=== PATIENT | male | born 1995 | race Caucasian/White ===

== ENCOUNTER 2020-08-13 23:46 | Emergency (ER) | payer OTHER, SELFPAY ==
[2020-08-13 23:56] VITALS: BP 153/94; PULSE 77; RESP 14; TEMP 37.1; O2SAT 96; BMI 29.2
[2020-08-14 00:27] LABS: Strep Scrn Group A (Rapid) Negative (Negative)
--- NOTE | 2020-08-14 00:31 | HMH.EDGENADL ---
ED Disposition Clinical Impression: Pharyngitis Qualifiers: Pharyngitis/tonsillitis etiology: unspecified etiology Qualified Code(s): J02.9 - Acute pharyngitis, unspecified Disposition: Home, Self-Care Condition on Discharge: Good Instructions: Sore Throat Additional Instructions: fluids and use meds as directed Prescriptions: cephALEXin [Keflex 500mg Cap] 500 mg PO TID #30 cap Prescription Printed Referrals: Bucky Mac MD [Primary Care Provider] - - Critical Care Critical Care Time: No Attestation: On 08/13/20, the high probability of a clinically significant, sudden or life threatening deterioration of the following system(s) required my full and direct attention, intervention and personal management. The time I documented below is in addition to time spent performing reported procedures but includes the following listed in this critical care notation. Medical Decision Making - Medical Records Medical records reviewed: Yes: I reviewed the patient's medical records. - Ac Inquiry Pt receiving controlled substance: No Vital Signs: 08/13/20 23:56 Temperature 98.7 F Temperature Source Oral Pulse Rate [Right] 77 Respiratory Rate 14 Blood Pressure [Right Arm] 153/94 H Blood Pressure Mean [Right Arm] 113 Blood Pressure Source [Right Arm] Automatic Cuff Blood Pressure Position [Right Arm] Sitting 02 Sat by Pulse Oximetry 96 Oxygen Delivery Method Room Air - Lab Data Lab results reviewed: Yes: I reviewed the patient's lab results. Lab Results 08/14/20 00:00: Group A Strep Rapid Negative Orders (Tests/Meds): ED MEDICATIONS Discontinued Medications Generic Name Dose Route Start Last Admin Trade Name Freq PRN Reason Stop Dose Admin Dexamethasone Sodium Phosphate 10 mg 08/14/20 00:14 08/14/20 00:17 Dexamethasone 4mg/Ml 1ml Vial IM 08/14/20 00:15 10 mg ONCE ONE Administration ORDERS Category Date Time Status Strep Screen Confirmation Stat Micro 08/14/20 00:00 Received General Adult HPI - General Chief complaint: PAIN Stated complaint: Sore throat Time Seen by Provider: 08/14/20 00:00 Mode of Arrival: Ambulatory Source of Information: Patient, Spouse, Medical Record Limitations: No Limitations Description of Symptoms (Recalled from ER Triage Doc. by RN): Pt states he has a sore throat starting yesterday, denies cough or fever. - History of Present Illness HPI narrative: sore throat w/o rash and no exposure to covid-19 Onset (ago): day(s) Severity: moderate Associated symptoms: denies other symptoms Treatments prior to arrival: none - Related Data Previous Rx's Medication Instructions Recorded cephALEXin [Keflex 500mg Cap] 500 mg PO TID #30 cap 08/14/20 Allergies Allergy/AdvReac Type Severity Reaction Status Date / Time No Known Allergies Allergy Unverified 09/13/17 14:54 [facility] History - Hepatitis A Screen Drug use history?: No High risk sexual behaviors?: No History of sexually transmitted infection?: No Currently employed?: No Childcare worker?: No Do you have indoor plumbing?: Yes Do you have electricity?: Yes Attestation statement:: This patient has been screened for Hepatitis A risk factors. I have reviewed the patient's past medical history: Yes Medical History: Denies:: Cancer, Diabetes Mellitus Type 1, Diabetes Mellitus Type 2, MRSA - Social History Alcohol Intake: never Occupational Status: employed ROS Obtained: Yes All systems reviewed & no additional complaints - Constitutional Constitutional: Denies fever(s) - ENT Ears, Nose, Mouth, and Throat: Reports as per HPI, Reports sore throat - Musculoskeletal Musculoskeletal: Denies joint pain - Integumentary/Breasts Skin/Breast: Denies rash - Neurologic Neurologic: Denies seizure-like activity Physical Exam - General General appearance: alert - Head Head exam: normocephalic - Eye Eye exam: Present: PERRL, EOMI - Expande
[2020-08-14 00:39] VITALS: BP 148/82; PULSE 76; RESP 14; TEMP 37.1; O2SAT 98
== END 2020-08-14 00:44 | disposition home or self-care (01) ==
PROVIDERS: Emergency Provider Emergency Medicine; PCP Family Medicine
DX: J02.9 Acute pharyngitis, unspecified (principal)
CPT/HCPCS: 87430; 96372; 99282

== ENCOUNTER → 2020-12-26 13:09 | Outpatient (CLI) | payer OTHER, SELFPAY ==
[2020-12-26 13:54] LABS: Coronavirus 19 IgG Antibody Negative (Negative); Coronavirus 19 IgM Antibody Negative (Negative)
== END ==
PROVIDERS: Visit Provider Urology
DX: Z01.812 Encounter for preprocedural laboratory examination (principal); Z11.52 Encounter for screening for COVID-19; Z30.2 Encounter for sterilization
CPT/HCPCS: 36415; 86328

== ENCOUNTER 2020-12-29 08:55 | Day surgery (SDC) | payer OTHER, SELFPAY ==
[2020-12-22 12:39] VITALS: BMI 28.4
[2020-12-29 09:11] VITALS: BP 146/91; PULSE 63; RESP 16; TEMP 36.9; O2SAT 100
[2020-12-29 10:35] VITALS: BP 149/91; PULSE 58; RESP 16; TEMP 36.7; O2SAT 100
--- NOTE | 2020-12-29 11:24 | SUR.OPER ---
1012: count number 1- 10 rays 2 bovie tip 1 blade 1 suture 1 hypo 1030: count number 2- 10 rays 2 bovie tip 1 blade 1 suture 1 hypo count correct KH/
--- NOTE | 2020-12-29 17:50 | P.OP_ITS ---
Date of procedure: 12/29/20 Pre-op Diagnosis:: Sterilization Post-op Diagnosis:: Same Procedure performed:: Vasectomy Surgeon:: Andrea Shankar MD Anesthesia: local Estimated blood loss (mL): 2 Clinical Note:: 25-year-old white male seen recently for vasectomy consultation presents for the procedure today. Operative findings:: Testicles within normal limits. Procedure went well without complication. Operative note:: Patient taken to the vasectomy suite after informed consent was obtained. On the stretcher he was prepped and draped in the standard surgical fashion. Scrotal examination revealed no abnormalities. The testicles were of normal size and shape. The left vas was grasped and brought up to the midline raphae. Local anesthetic was placed under the skin and around the basal structure. After analgesia a midline incision was made and the vas was grasped with a tenaculum and brought up through the incision. The basal sheath was incised and the vas proper was dissected from its surrounding investing tissue. 1 clip was placed distally and 2 clips were placed proximally. A 1 cm segment of the vas w as excised and the basal lumen was cauterized proximally and distally. Hemostasis was achieved of the surrounding structures and the left vas was dropped back into the hemiscrotum. The right vas was then grasped and brought up through the same midline incision. Local anesthetic was placed around the right vas as well and the identical procedure was performed on the right side. The right vas was dropped back into the hemiscrotum and a 3-0 chromic placed in a horizontal mattress fashion in the skin. Compression dressing applied. Patient tolerated procedure well there are no complications. Condition: stable Disposition: same day Specimens:: Vas segments were not sent Complications:: None
== END 2020-12-29 10:48 | disposition home or self-care (01) ==
LOC: OUTP 08:59
PROVIDERS: PCP Family Medicine; Visit Provider Urology
PROC: (CPT 55250; principal; 2020-12-29 10:00)
DX: Z30.2 Encounter for sterilization (principal)
CPT/HCPCS: 55250

== ENCOUNTER 2021-04-19 21:20 | Emergency (ER) | payer OTHER, SELFPAY ==
[2021-04-19 21:31] VITALS: BP 136/94; PULSE 72; RESP 18; TEMP 36.8; O2SAT 97; BMI 28.4
--- NOTE | 2021-04-19 21:43 | XR_ITS ---
PROCEDURE INFORMATION: Exam: XR Right Hand Exam date and time: 04/19/2021 9:43 PM Age: 25 years old Clinical indication: Injury or trauma; Other: Punched window; Laceration; Hand; Right; Patient HX: Lac to thumb and busted knuckles; Additional info: Hand through window TECHNIQUE: Imaging protocol: XR Right hand. Views: 3 or more views. COMPARISON: No relevant prior studies available. FINDINGS: Bones/joints: Subtle irregularity at the base of the 2nd metacarpal.. No dislocation. Soft tissues: Soft issue irregularity overlying the base of the thumb. IMPRESSION: Potential nondisplaced fracture at the base of the 2nd metacarpal. Correlation with point tenderness is recommended.
--- NOTE | 2021-04-19 21:53 | HMH.EDGENADL ---
ED Disposition Clinical Impression: Fracture, metacarpal Qualifiers: Encounter type: initial encounter Metacarpal bone: second Fracture type: closed Metacarpal location: base Fracture alignment: nondisplaced Laterality: right Qualified Code(s): S62.340A - Nondisplaced fracture of base of second metacarpal bone, right hand, initial encounter for closed fracture Extensor tendon laceration of finger with open wound Qualifiers: Encounter type: initial encounter Qualified Code(s): S56.429A - Laceration of extensor muscle, fascia and tendon of unspecified finger at forearm level, initial encounter Hand laceration involving tendon Qualifiers: Encounter type: initial encounter Laterality: right Qualified Code(s): S61.411A - Laceration without foreign body of right hand, initial encounter Disposition: Home, Self-Care Condition on Discharge: Good Additional Instructions: You have a complete laceration of the extensor tendon of your thumb, partial laceration of the extensor tendon of your index finger. Possible fracture of the base of your second metacarpal. See Dr. Ramsay, hand surgery in [facility]. Call tomorrow to make an appointment to be seen as soon as possible. Keep bandage and splint on until seen by hand surgery. To reduce pain and swelling. Tylenol 3 and [place] as needed for pain. Take Keflex as prescribed. Return to the emergency department if intolerable pain, severe swelling, red streaks or fever. Additional instructions for CONTROLLED SUBSTANCES: You have been prescribed a medication that is a controlled substance. Controlled substances include pain medications known as opiates and sedative nerve medications known as benzodiazepines. Tramadol, fioricet, and gabapentin are also controlled substances. Some common opiates include: Codeine (such as Tylenol #3) Hydrocodone (Vicodin, Lortab, Lorcet, [place]) Oxycodone (Percocet, Percodan, Oxycodone, Oxy IR) Some common benzodiazepines include: Diazepam (Valium) Lorazepam (Ativan) Alprazolam (Xanax) Clonazepam (Klonopin) Oxazepam (Serax) All of these controlled substances are highly addictive and frequently abused. Misuse can and frequently does lead to addiction as well as overdose and . Medication should be stored in a locked cabinet or other secure storage unit. Do not store the medication in a motor vehicle. Short term supplies, 3 days or less, are prescribed because of the highly addictive nature of the medication. Any of the controlled substance medication NOT taken should be disposed of properly and NOT SAVED. The recommended method of disposing of unused medications is: Place the medicines in a sealable plastic bag. If the medicine is a solid, crush it or add water to dissolve it. Add something undesirable (cat litter, coffee grounds, etc.) Dispose of sealed bag in household trash Do not flush or pour unused medicines down a sink or drain. Controlled substances should not be shared, given away or sold. Because of the addictive nature and frequent abuse, these medications are sometimes stolen. These medications should be kept in a safe place where they cannot be stolen. Do not keep them in your car or purse. Lost or stolen prescriptions for controlled substances WILL NOT BE REFILLED in this emergency department, regardless of whether a police report was filed. Prescriptions: Hydrocod/Acet 5/325 mg [[place] 5/325mg tablet] 1 tab PO Q6HP PRN #10 tab PRN Reason: Pain Transmission Status: Received by [facility] cephALEXin [cephALEXin 500mg capsule*] 500 mg PO Q6H #28 cap Transmission Status: Received by [facility] Referrals: Bucky Mac MD [Primary Care Provider] - - Critical Care Critical Care Time: No Attestation: On 04/19/21, the high probability of a clinically significant, sudden or life threatening deterioration of the following system(s) required my full and direct
[2021-04-19 22:00] VITALS: BP 134/84; PULSE 64; O2SAT 99
[2021-04-19 22:30] VITALS: BP 137/85; PULSE 66; O2SAT 96
--- NOTE | 2021-04-19 22:40 | PC.NURSE ---
2230: DR. GRADY AT BEDSIDE SUTURING.
--- NOTE | 2021-04-19 23:14 | PC.NURSE ---
Splint placed on right index finger and all knuckles cleaned and dressed with non-stick dressing and kerlex. Pt tolerated well.
[2021-04-19 23:29] VITALS: BP 137/85; PULSE 66; RESP 18; TEMP 36.8; O2SAT 97
== END 2021-04-19 23:31 | disposition home or self-care (01) ==
PROVIDERS: Emergency Provider Emergency Medicine; PCP Family Medicine
DX: S66.221A Laceration of extensor muscle, fascia and tendon of right thumb at wrist and hand level, initial encounter (principal); S66.320A Laceration of extensor muscle, fascia and tendon of right index finger at wrist and hand level, initial encounter; W25.XXXA Contact with sharp glass, initial encounter; Y92.019 Unspecified place in single-family (private) house as the place of occurrence of the external cause; S62.340A Nondisplaced fracture of base of second metacarpal bone, right hand, initial encounter for closed fracture; S61.411A Laceration without foreign body of right hand, initial encounter
CPT/HCPCS: 12042; 73130; 99282

== ENCOUNTER 2021-09-04 18:38 | Emergency (ER) | payer OTHER, SELFPAY ==
[2021-09-04 19:00] VITALS: BP 149/95; PULSE 78; RESP 19; TEMP 39.2; O2SAT 98; BMI 29.6
[2021-09-04 19:43] LABS: UTC Influenza A Antigen Negative (Negative); UTC Influenza B Antigen Negative (Negative)
[2021-09-04 20:15] LABS: UTC Strep Screen (Rapid) Negative (Negative)
[2021-09-04 20:18] LABS: Adenovirus,PCR Not Detected (NotDetected); Bordetella Pertussis Not Detected (NotDetected); Chlamydophila Pneumoniae, PCR Not Detected (NotDetected); Coronavirus 229E Not Detected (NotDetected); Coronavirus NL63 Not Detected (NotDetected); Coronavirus OC43 Not Detected (NotDetected); Coronovirus HKU1,PCR Not Detected (NotDetected); Human Metapneumovirus Not Detected (NotDetected); Influenza A, PCR Not Detected (NotDetected); Influenza AH1, 2009 Not Detected (NotDetected); Influenza AH1, PCR Not Detected (NotDetected); Influenza AH3,PCR Not Detected (NotDetected); Influenza B, PCR Not Detected (NotDetected); Mycoplasma Pneumoniae, PCR Not Detected (NotDetected); Parainfluenza 1, PCR Not Detected (NotDetected); Parainfluenza 2, PCR Not Detected (NotDetected); Parainfluenza 3, PCR Not Detected (NotDetected); Parainfluenza 4, PCR Not Detected (NotDetected); Respiratory Syncytial Virus Not Detected (NotDetected); Rhinovirus/Enterovirus Not Detected (NotDetected)
--- NOTE | 2021-09-04 20:23 | HMH.EDUTC ---
[facility] [place] Clinical Impression: Viral syndrome, Exposure to COVID-19 virus Disposition: Home, Self-Care Condition on Discharge: Good Instructions: Preventing the Spread of Coronavirus Discharge Instructions, DI for COVID-19 (Suspected or Confirmed ) Additional Instructions: Drink plenty of fluids. Take tylenol or ibuprofen for pain or fever. Take the medications as directed. Follow up with your regular doctor. GO TO THE ER FOR ANY WORSENING SYMPTOMS Quarantine until you know the results of your covid-19 test. If it is positive, the health department should call you and give you further instructions about your length of Quarantine and other things. Notify your school or workplace of your results and follow their instructions regarding return to work/school. Prescriptions: Ondansetron [Zofran 4mg ODT] 4 mg PO Q8HP PRN #20 tab PRN Reason: Nausea Transmission Status: Pending to [facility] Referrals: Bucky Mac MD [Primary Care Provider] - Time of Disposition: : Medical Decision Making - Medical Records Medical records reviewed: No: I reviewed the patient's medical records. - Ac Inquiry Pt receiving controlled substance: No Vital Signs: 09/04/21 19:00 Temperature 102.5 F H Temperature Source Oral Pulse Rate [Right Brachial] 78 Respiratory Rate 19 Blood Pressure [Right Arm] 149/95 H Blood Pressure Mean [Right Arm] 113 Blood Pressure Source [Right Arm] Automatic Cuff Blood Pressure Position [Right Arm] Sitting 02 Sat by Pulse Oximetry 98 Oxygen Delivery Method Room Air - Lab Data Lab results reviewed: Yes: I reviewed the patient's lab results. Lab Results 09/04/21 19:22: Influenza Type A Ag Negative, Influenza Type B Ag Negative 09/04/21 20:09: Strep Scn Rapid Clinic Negative Orders (Tests/Meds): ED MEDICATIONS Discontinued Medications Generic Name Dose Route Start Last Admin Trade Name Freq PRN Reason Stop Dose Admin Ibuprofen 800 mg 09/04/21 19:26 09/04/21 19:32 Ibuprofen 400 Mg Tablet PO 09/04/21 19:27 800 mg ONCE ONE Administration ORDERS Category Date Time Status Full Resp Panel w/COVID ([facility]) Routine Lab 09/04/21 18:59 Received Strep Screen Confirmation Stat Micro 09/04/21 20:09 [place] [facility] [place] - General Stated complaint: covid test, Headache body aches Time Seen by Provider: 09/04/21 19:30 Mode of Arrival: Ambulatory Source of Information: Patient Limitations: No Limitations Description of Symptoms (Recalled from Triage Doc. by RN): PATIENT C/O COUGH, FEVER, AND BODY ACHES X 2 DAYS HEENT Symptoms (Recalled from RN notes): No Resp Symptoms (Recalled from RN notes): Yes Skin Symptoms (Recalled from RN notes): No MS Symptoms (Recalled from RN notes): No Functional Status (Recalled from RN notes): WNL - History of Present Illness Provider Complaint: He states that this morning he started feeling bad. Since then he has started running a fever and having body aches. He denies any cough or congestion so far. He denies any sore throat. - Related Data Previous Rx's Medication Instructions Recorded Ondansetron [Zofran 4mg ODT] 4 mg PO Q8HP PRN #20 tab 09/04/21 Allergies Allergy/AdvReac Type Severity Reaction Status Date / Time No Known Allergies Allergy Verified 12/22/20 12:38 - Worker's Comp Is this a Worker's Comp case?: No [facility] History - Hepatitis A Screen Drug use history?: No High risk sexual behaviors?: No History of sexually transmitted infection?: No Currently employed?: No Childcare worker?: No Do you have indoor plumbing?: Yes Do you have electricity?: Yes Attestation statement:: This patient has been screened for Hepatitis A risk factors. I have reviewed the patient's past medical history: Yes Medical History: Denies:: Cancer, Diabetes Mellitus Type 1, Diabetes Mellitus Type 2, Internal Pacemaker, MRSA, Seizures Laterality Cases: Right: A
[2021-09-04 20:26] VITALS: BP 149/95; PULSE 78; RESP 19; TEMP 39.2; O2SAT 98
[2021-09-04 23:11] LABS: Coronavirus 19, PCR Detected (NotDetected)
== END 2021-09-04 20:31 | disposition home or self-care (01) ==
PROVIDERS: Emergency Provider Nurse Practitioner Family; PCP Family Medicine
DX: Z20.822 Contact with and (suspected) exposure to COVID-19 (principal); B34.9 Viral infection, unspecified; R50.9 Fever, unspecified
CPT/HCPCS: 87581; 87632; 87798; 87804; 87880; 99203; C9803; G0463; U0003; U0005

== ENCOUNTER → 2021-12-24 11:34 | Outpatient (CLI) | payer OTHER, SELFPAY ==
--- NOTE | 2021-12-24 11:39 | US_ITS ---
FINAL REPORT TECHNIQUE: Ultrasound images of the testicles were obtained bilaterally. Color Doppler images were obtained. CLINICAL HISTORY: LEFT TESTICULAR PAIN FINDINGS: The right testicle measures 5.2 x 3.6 x 2.8 cm. The left testicle measures 5.0 x 3.4 x 2.1 cm. Arterial flow is identified bilaterally. No intratesticular masses are identified. There is a cyst in the left epididymal head measuring 9 mm which is likely a spermatocele or epididymal cyst. There is a left varicocele. The left epididymis is somewhat enlarged and may represent epididymitis IMPRESSION: Cyst in the left epididymal head measuring 9 mm, likely a spermatocele or epididymal cyst. Left varicocele. Somewhat enlarged left epididymis, may represent epididymitis. Reviewed, Interpreted and Dictated by Kwasi Galeana III, MD Transcribed by Raisa Ghosh Authenticated by Kwasi Galeana III, MD on 12/24/2021 02:02:31 PM [facility]
== END ==
PROVIDERS: PCP Family Medicine; Visit Provider Family Medicine
DX: N50.812 Left testicular pain (principal)
CPT/HCPCS: 76870

== ENCOUNTER → 2022-04-08 07:10 | Outpatient (CLI) | payer OTHER, SELFPAY ==
[2022-04-07 18:14] LABS: Adenovirus,PCR Not Detected (NotDetected); Bordetella Pertussis Not Detected (NotDetected); Chlamydophila Pneumoniae, PCR Not Detected (NotDetected); Coronavirus 229E Not Detected (NotDetected); Coronavirus NL63 Not Detected (NotDetected); Coronavirus OC43 Not Detected (NotDetected); Coronovirus HKU1,PCR Not Detected (NotDetected); Human Metapneumovirus Not Detected (NotDetected); Influenza A, PCR Not Detected (NotDetected); Influenza AH1, 2009 Not Detected (NotDetected); Influenza AH1, PCR Not Detected (NotDetected); Influenza AH3,PCR Not Detected (NotDetected); Influenza B, PCR Not Detected (NotDetected); Mycoplasma Pneumoniae, PCR Not Detected (NotDetected); Parainfluenza 1, PCR Not Detected (NotDetected); Parainfluenza 2, PCR Not Detected (NotDetected); Parainfluenza 3, PCR Not Detected (NotDetected); Parainfluenza 4, PCR Not Detected (NotDetected); Respiratory Syncytial Virus Not Detected (NotDetected); Rhinovirus/Enterovirus Not Detected (NotDetected)
== END ==
PROVIDERS: PCP Nurse Practitioner; Visit Provider Nurse Practitioner
DX: U07.1 COVID-19 (principal); R50.9 Fever, unspecified; R51.9 Headache, unspecified
CPT/HCPCS: 87486; 87581; 87632; 87798; C9803; U0003; U0005

== ENCOUNTER → 2022-07-23 16:36 | Outpatient (CLI) | payer OTHER, SELFPAY ==
[2022-07-23 15:22] LABS: Coronavirus 19, PCR Not Detected (NotDetected); Influenza A, PCR Not Detected (NotDetected); Influenza B, PCR Not Detected (NotDetected)
== END ==
PROVIDERS: PCP Nurse Practitioner; Visit Provider Nurse Practitioner
DX: J06.9 Acute upper respiratory infection, unspecified (principal); Z20.822 Contact with and (suspected) exposure to COVID-19
CPT/HCPCS: C9803; U0003; U0005